=== PATIENT | male | born 1990 | race Caucasian/White ===

== ENCOUNTER 2018-01-11 18:16 | Observation (INO) | payer BC ==
[2018-01-11] MEDS ORDERED: ASPIRIN 81 MG PO STA (18:33)
--- NOTE | 2018-01-11 18:43 | ED ---
Chest Pain HPI - General Chief Complaint: Chest Pain Stated Complaint: Chest Pain Time Seen by Provider: 01/11/18 18:25 Source: patient, RN notes reviewed Mode of arrival: ambulatory Limitations: no limitations - History of Present Illness Initial Comments: This is a 27-year-old male with history of mitral valve prolapse who presents to the emergency department with chief complaint of chest pain. Patient states that 15-20 minutes prior to arrival he developed left lower chest pain that he describes as dull. He states that the pain is constant and has not gone away. He denies any shortness of breath, abdominal pain, nausea or vomiting, dizziness or headache. He states that he has experienced this chest pain in the past. He states that yesterday he had a 20-30 minute episode where he developed chest pain when he took a deep breath in. He states that this has subsided. He reports an extensive family history of cardiac disease. He states his mother in her 30s and had Marfan's syndrome. He states his brother has a defibrillator. He states that he was diagnosed with Marfan syndrome but never had formal genetic testing. He states he is currently trying to get his insurance to cover to genetic testing. He states that he does see cardiology and has an echocardiogram performed every 2 years. - Related Data Home Medications Medication Instructions Recorded Confirmed No Known Home Medications [No 01/11/18 01/11/18 Known Home Medications] Allergies Allergy/AdvReac Type Severity Reaction Status Date / Time No Known Allergies Allergy Verified 01/11/18 18:23 Review of Systems ROS Statement: Those systems with pertinent positive or pertinent negative responses have been documented in the HPI. ROS Other: All systems not noted in ROS Statement are negative. EKG Findings - EKG Comments: EKG Findings:: 18:31:34 : Normal sinus rhythm with sinus arrhythmia. Ventricular rate 66 bpm, SD interval 176, QRS duration 96, QT/QTC 376/394. Past Medical History Past Medical History: Mitral Valve Prolapse (MVP) Additional Past Medical History / Comment(s): Marfans syndrome History of Any Multi-Drug Resistant Organisms: None Reported Past Surgical History: No Surgical Hx Reported Past Psychological History: No Psychological Hx Reported Smoking Status: Never smoker Past Alcohol Use History: Occasional Past Drug Use History: None Reported General Exam - General Exam Comments Initial Comments: General: Awake and alert, well-developed; in no apparent distress. HEENT: Head atraumatic, normocephalic. Pupils are equal, round and reactive to light. Extraocular movements intact. Oropharynx moist without erythema or exudate. Neck: Supple. Normal ROM. Cardiovascular: Regular rate and rhythm. No murmurs, rubs or gallops. Chest symmetrical. Respiratory: Lungs clear to auscultation bilaterally. No wheezes, rales or rhonchi. Normal respiratory effort with no use of accessory muscles. Musculoskeletal: Normal ROM, no tenderness bilateral upper and lower extremities. Ambulating normally. Skin: [place], warm and dry without rashes or lesions. Neurological: Alert and oriented x3. CN II-XII grossly intact. Speech is fluent and answers are appropriate. No focal neuro deficits. Psychiatric: Normal mood and affect. No overt signs of depression or anxiety noted. Limitations: no limitations Course Vital Signs 01/11/18 01/11/18 01/11/18 18:18 19:16 20:05 Temperature 97.3 F L Pulse Rate 72 74 63 Respiratory 18 18 20 Rate Blood Pressure 134/75 116/82 121/56 O2 Sat by Pulse 96 99 99 Oximetry Chest Pain MDM - MDM Chest x-ray impression: No acute cardiopulmonary process. This is a 27-year-old male with history of mitral valve prolapse and Marfan syndrome who presents to the emergency department with chief complaint of chest pain. Patient developed dull left lower chest pain this evening. EKG revealed normal sinus rhythm with sinus arrhythmia. No evidence or ST segment elevation or depression. Chest x-ray revealed no acute abnormalities. CBC, CMP, coags were unremarkable. Troponin was negative. D-dimer is negative. Because of patient's history of mitral valve prolapse and Marfan's syndrome as well as the acute onset of left-sided chest pain, patient will be kept for serial cardiac markers and cardiology consult. Patient is in agreement for admission. Patient 's at bedside states that her mother is a nurse practitioner who works with Dr. Lima. She states that she was informed that patient can be admitted to Dr. Lima if he needed to be. Patient will be admitted to Dr. Lima with consult to cardiology. Disposition Clinical Impression: Chest pain Disposition: ADMITTED IP TO THIS HOSP Condition: Stable Is patient prescribed a controlled substance at d/c from ED?: No Referrals: None,Stated [Primary Care Provider] - 1-2 days Time of Disposition: :41
[2018-01-11 18:49] LABS: Basophils # (A) 0.1 k/uL (0-0.2); Basophils % (A) 1 %; Eosinophils # (A) 0.4 k/uL (0-0.7); Eosinophils % (A) 7 %; HCT 45.4 % (39.0-53.0); HGB 15.6 gm/dL (13.0-17.5); Lymphocytes % (A) 31 %; MCH 29.9 pg (25.0-35.0); MCHC 34.4 g/dL (31.0-37.0); Monocytes # (A) 0.4 k/uL (0-1.0); Monocytes % (A) 6 %; Neutrophils # (A) 3.4 k/uL (1.3-7.7); Neutrophils % (A) 54 %; Platelet Count 206 k/uL (150-450); RBC 5.22 m/uL (4.30-5.90); RDW 12.7 % (11.5-15.5); WBC 6.3 k/uL (3.8-10.6)
[2018-01-11 19:01] LABS: ALT 35 U/L (21-72); AST 20 U/L (17-59); Albumin 4.6 g/dL (3.5-5.0); Alkaline Phosphatase 47 U/L (38-126); Anion Gap 15 mmol/L; Blood Urea Nitrogen 22 mg/dL (9-20); Calcium 9.5 mg/dL (8.4-10.2); Carbon Dioxide 25 mmol/L (22-30); Chloride 103 mmol/L (98-107); Glucose 124 mg/dL (74-99); Magnesium 1.9 mg/dL (1.6-2.3); Potassium 3.8 mmol/L (3.5-5.1); Sodium 143 mmol/L (137-145); Total Bilirubin 0.4 mg/dL (0.2-1.3); Total Protein 6.6 g/dL (6.3-8.2)
[2018-01-11 19:09] LABS: Partial Thromboplastin Time 25.5 sec (22.0-30.0); Prothrombin Time 10.2 sec (9.0-12.0)
[2018-01-11 19:14] LABS: Creatine Kinase 83 U/L (55-170)
--- NOTE | 2018-01-11 19:14 | XR ---
EXAMINATION TYPE: XR chest 2V DATE OF EXAM: 01/11/2018 COMPARISON: NONE HISTORY: Chest pain TECHNIQUE: Frontal and lateral views of the chest are obtained. FINDINGS: There is no focal air space opacity, pleural effusion, or pneumothorax seen. The cardiac silhouette size is upper limits of normal. The osseous structures are intact. IMPRESSION: No acute cardiopulmonary process.
[2018-01-11 19:27] LABS: Creatine Kinase MB 0.4 ng/mL (0.0-2.4); Troponin I <0.012 ng/mL (0.000-0.034)
[2018-01-11] MEDS ORDERED: MORPHINE SULFATE 4 MG/ML SYRINGE IV PRN (20:41)
[2018-01-11] MEDS ORDERED: ACETAMINOPHEN TAB 325 MG TAB PO PRN (20:41)
[2018-01-11] MEDS ORDERED: NALOXONE 0.4 MG/ML 1 ML VIAL IV PRN (20:41)
[2018-01-11] MEDS ORDERED: KETOROLAC 30 MG/ML 1 ML VIAL IVP PRN (20:41)
[2018-01-11] MEDS: SODIUM CHLORIDE 0.9% 1,000 ML IV SCH (21:29)
[2018-01-11 21:35] VITALS: BMI 22.2
[2018-01-12] MEDS: SODIUM CHLORIDE 0.9% 1,000 ML IV SCH (11:41)
[2018-01-12 11:52] VITALS: BP 119/69; PULSE 69; RESP 18; TEMP 98.9
--- NOTE | 2018-01-12 13:22 | HP ---
HISTORY AND PHYSICAL CHIEF COMPLAINT: Left lower anterior wall chest pain. HISTORY OF PRESENT ILLNESS: This is the first admission for this 27-year-old white male. He developed aggravating left lower anterior costal margin pain. It varied somewhat but lasted a day or so and he decided to come to the emergency room. He had no shortness of breath, diaphoresis, nausea, vomiting, pressure in the chest, palpitations, syncope, etc. He had no hemoptysis. This is very likely a chest wall pain. In the emergency room, his enzymes, D-dimer, EKG, etc. were all normal. He was concerned because he did have a spontaneous left pneumothorax in the past, but did not have one this time. Significant also is that his mother and an uncle in the 30s of some unexplained cardiac disease. He has been worked up for possible Marfan syndrome along with his brother. He is very tall and is suggestive of having . He has a faint murmur, apparently. He has had no eye or palatal findings to suggest Marfan's. He has a brother who was also diagnosed with Marfan's. He recently underwent genetic testing and was cleared of that diagnosis. The patient is on atenolol prophylactically. He sees a transporter driver at [facility] (Dr. Lee) who does not believe he has Marfan's either. The pain did not radiate anywhere and it is very likely this is chest wall pain. He has had no history of recent trauma, fever, chills, cough, URI, etc. REVIEW OF SYSTEMS: He has no had no other complaints or problems. He has no renal disease, hematuria, dysuria, diabetes, hypertension, etc. Past medical history, family history, personal and social history are otherwise unremarkable. ALLERGIES: He is not allergic to any medication. MEDICATIONS: He is only on atenolol. He has had no surgery. He does not smoke or drink. PHYSICAL EXAMINATION: VITAL SIGNS: Blood pressure is 123/74 with a pulse of 72, respirations is 16. He is afebrile. GENERAL: In general he appeared to be tall, slender, well developed, well nourished, in no acute distress. SKIN color is normal skin is warm, dry. Lymph nodes not enlarged. HEENT: Head, ears, eyes, nose, mouth, and throat were normal. The palate was not particularly high, arched and eyes are normal. NECK is supple. Neck veins not distended. CHEST is clear. Breath sounds are heard on both sides. A little bit of tenderness in the left costal margin. CARDIAC exam is normal sinus rhythm and no murmurs or extra sounds. ABDOMEN: The abdomen is soft, nontender without visceromegaly or masses. EXTREMITIES: Normal. NEUROLOGICAL is intact. IMPRESSION: 1. Left costal margin chest wall pain. 2. Possible Marfan's syndrome. PLAN: 1. Bed rest. 2. IV fluids. 3. Serial EKGs and enzymes. 4. D-dimer. 5. Cardiology consult. MMODL / IJN: [id number] /
--- NOTE | 2018-01-12 17:35 | CONS ---
CONSULTATION Home Cornejo is a 27-year-old gentleman who sees Dr. Lima in the outpatient setting and also sees a wire saw operator in the [facility] by name Dr. Lee. Apparently, there is a question of Marfan syndrome, but he never had this proven. There is also a question of mitral valve prolapse and he takes atenolol 50 mg daily on a regular basis. Yesterday, he had an episode of what he described as a discomfort in his left lateral chest and came into the hospital with this complaint. The quality of pain is very atypical, almost musculoskeletal in the left lower lateral aspect of the chest. It lasts for a few minutes and it seems to sometimes make him not take a deep breath. However, these symptoms have resolved. He feels well today. He has had a previous echocardiogram and follows with Dr. Lee at the [facility]. He takes atenolol 50 mg daily at home. PAST MEDICAL HISTORY: Question of mitral valve prolapse and a question of Marfan's, both of which are unproven. He has seen an gas golf cart repairer and was told he does not have any ectopia lentis type problem. EXAMINATION: His vital signs are stable with the pressure of 118/70 pulse rate is 64 per minute. HEENT: Unremarkable. Fundus was not examined by me. NECK: Supple. No JVD. I do not hear a carotid bruit. There is no thyromegaly. HEART: Reveals S1, S2 heard normally. There is no rub, murmur, click, or gallop. LUNGS: Clear. ABDOMEN: Soft, nontender. Lower extremities reveal palpable pulses. No edema. Central nervous system is normal. EKG revealed sinus mechanism with borderline voltage criteria for LVH. IMPRESSION: 1. Atypical musculoskeletal chest pain with normal troponins. 2. Question of mitral valve prolapse, but this is not evident on my physical examination, but patient follows with a wire saw operator at [facility]. 3. Question of Marfan syndrome, being evaluated and followed at [facility] and under the care of Dr. Lima. RECOMMENDATIONS: I recommend that this patient can be discharged on his current medical regimen. He is supposed to follow up with his wire saw operator in [facility], Dr. Lee. I am recommending that he has further workup including an outpatient stress test to be performed there. No intervention is necessary at this time. Thank you very much for the consult. LINDSEYL / IJN: [id number] /
--- NOTE | 2018-01-12 22:11 | DS ---
DISCHARGE SUMMARY CHIEF COMPLAINT: Chest wall pain. HISTORY OF PRESENT ILLNESS AND PHYSICAL EXAM: Details of this man's history and physical can be found in the initial workup. LABORATORY STUDIES: While he was in a hospital he had laboratory studies, details which can be found in the laboratory section of his chart. COURSE IN HOSPITAL: After admission he was placed on bedrest, started on intravenous fluids and had serial EKGs and enzymes and they were all normal. EKG was normal and D-dimer was normal. Patient was seen by Cardiology. It is felt that his pain was chest wall in origin and that he go home. He will follow up with his own physician. FINAL DIAGNOSES: 1. Chest wall pain. 2. Unlikely Marfan's syndrome. OPERATIONS: None. CONSULTATION: Cardiology. He is improved. SHILO / MYRAN: [id number] /
[2018-01-13] MEDS ORDERED: ATENOLOL 50 MG TAB PO SCH (09:00)
== END 2018-01-12 12:33 | disposition home or self-care (01) ==
LOC: EC 18:16 → 6SEL 20:18
PROVIDERS: ADMIT Family Medicine; ATTEND Family Medicine
DX: R07.89 Other chest pain (principal); Z79.899 Other long term (current) drug therapy; Z87.09 Personal history of other diseases of the respiratory system
CPT/HCPCS: 36415; 71046; 80053; 82550; 82553; 83735; 84484; 85025; 85379; 85610; 85730; 93005; 99285

== ENCOUNTER → 2020-06-21 | Outpatient (CLI) | payer BC, OTHER | END | disposition home or self-care (01) | LOC: LABWHC1 10:22 | PROVIDERS: ATTEND Family Medicine | DX: Z20.828 Contact with and (suspected) exposure to other viral communicable diseases (principal) | CPT/HCPCS: U0003; C9803 ==

== ENCOUNTER 2022-02-24 21:56 | Emergency (ER) | payer BC ==
[2022-02-24 22:15] VITALS: BP 114/72; PULSE 87; RESP 14; TEMP 98.9
[2022-02-24] MEDS ORDERED: ONDANSETRON 4 MG/2 ML VIAL IVP STA (22:35)
[2022-02-24] MEDS ORDERED: FAMOTIDINE 20 MG/2 ML VIAL IV STA (22:35)
[2022-02-24] MEDS ORDERED: MAG HYDROX/AL HYDROX/SIMETH 30 ML, HYOSCYAMINE ELIXIR 10 ML, LIDOCAINE VISCOUS 2% 10 ML PO STA ×3 (22:36)
--- NOTE | 2022-02-24 22:38 | ED ---
General Adult HPI - General Chief complaint: Recheck/Abnormal Lab/Rx Stated complaint: Overdose, Heart History Time Seen by Provider: 02/24/22 22:17 Source: patient, family Mode of arrival: ambulatory Limitations: no limitations - History of Present Illness Initial comments: This is a 31-year-old male who presents to the emergency department after smoking a large amount of marijuana through a water bong. Patient admittedly smoked more than usual and then went to lay down. Patient's significant other states that he does get slow to respond when he smokes marijuana. However he is slower than usual. He is complaining of some burning sensation in his abdomen and epigastric area. Patient did vomit once prior to arrival. Significant ot her concern because he had a repair of a mitral valve done previously and she was concerned when he started complaining of pain. No headache, no fever or chills, no changes in vision or hearing, no sore throat or difficulty with speech--however, slow to respond after marijuana, no neck pain, no chest pain or shortness of breath,no changes in urination or bowel movements, no numbness or tingling, no extremity pain, no skin rashes or lesions. - Related Data Home Medications Medication Instructions Recorded Confirmed atenoloL [Tenormin] 50 mg PO DAILY 01/11/18 01/12/18 Allergies Allergy/AdvReac Type Severity Reaction Status Date / Time No Known Allergies Allergy Verified 02/24/22 22:09 Review of Systems ROS Statement: Those systems with pertinent positive or pertinent negative responses have been documented in the HPI. ROS Other: All systems not noted in ROS Statement are negative. Past Medical History Past Medical History: Mitral Valve Prolapse (MVP) Additional Past Medical History / Comment(s): Marfans syndrome, partially collapsed lung 12 years ago History of Any Multi-Drug Resistant Organisms: None Reported Past Surgical History: No Surgical Hx Reported, Coronary Bypass/CABG Past Anesthesia/Blood Transfusion Reactions: No Reported Reaction Past Psychological History: No Psychological Hx Reported Smoking Status: Never smoker Past Alcohol Use History: Occasional Past Drug Use History: Marijuana - Past Family History Mother Additional Family Medical History / Comment(s): at 35 from heart condition Brother(s) Family Medical History: AFIB Additional Family Medical History / Comment(s): pacemaker General Exam - General Exam Comments Initial Comments: Patient appears to be somewhat globally slow to respond but is able to give a limited history. He is alert. Cranial nerves II through XII grossly intact. Does not appear to be ill or toxic. Doesn't appear to be intoxicated consistent with heavy marijuana use Limitations: no limitations General appearance: alert, in no apparent distress Head exam: Present: atraumatic, normocephalic, normal inspection Eye exam: Present: normal appearance, PERRL, EOMI. Absent: scleral icterus, conjunctival injection, periorbital swelling ENT exam: Present: normal exam, mucous membranes moist Neck exam: Present: normal inspection, full ROM. Absent: tenderness, meningismus, lymphadenopathy Respiratory exam: Present: normal lung sounds bilaterally. Absent: respiratory distress, wheezes, rales, rhonchi, stridor Cardiovascular Exam: Present: regular rate, normal rhythm, normal heart sounds. Absent: systolic murmur, diastolic murmur, rubs, gallop, clicks GI/Abdominal exam: Present: soft, normal bowel sounds. Absent: distended, tenderness, guarding, rebound, rigid Extremities exam: Present: normal inspection, full ROM, normal capillary refill. Absent: tenderness, pedal edema, joint swelling, calf tenderness Back exam: Present: normal inspection Neurological exam: Present: alert, oriented X3, CN II-XII intact Psychiatric exam: Present: normal affect, normal mood Skin exam: Present: warm, dry, intact, normal color. Absent: rash Course Vital Signs 02/24/22 22:10 Temperature 98.9 F Pulse Rate 87 Respiratory 14 Rate Blood Pressure 114/72 O2 Sat by Pulse 98 Oximetry - Reevaluation(s) Reevaluation #1: 02/25/22 00:46 Medical record is reviewed Symptoms are improved here in the emergency department Patient is informed of results and questions answered Patient in no distress Patient improving. Patient states she is feeling somewhat better. Have yet to collect a urine. While ordered a fluid bolus. Plan for probable discharge. Reevaluation #2: 02/25/22 01:34 Vision improved. Patient able to hold down fluids in the ER. Patient Lucid, alert and oriented 4, cranial nerves II through XII grossly intact Family patient did not want to wait for the urine drug screen. Suspect the patient's symptomology was related to high dose of marijuana. Patient improved. No other significant findings. Presentation unlikely to be consistent with ischemic pain. Patient did have an episode of vomiting with some burning in the abdomen. Likely related to vomiting. This is resolved. Does not appear to be consistent with any infectious process. Repeat exam was benign. Patient was told to return to the ER for any signs or symptoms worsen. Told to return immediately if any other problems arise. All questions answered. Treatment plan discussed. Patient in agreement Every effort has been made to ensure accuracy of this dictation. However, due to the limitations of electronic medical records and dictation devices, errors in charting still occur. Discussed all findings with the patient and family. All questions answered. The case was discussed in detail with ED attending physician. Presentation, findings, treatment plan discussed in detail. Delivery Clerk Dr. Hooper EKG Findings - EKG Comments: EKG Findings:: EKG done at 2227 read by the ED attending physician reveals sinus rhythm with a first-degree AV block. Right axis deviation, normal intervals otherwise, no acute ST or T-wa.ve changes. Normal QRS morphology.No change from the previous study Medical Decision Making - Lab Data Result diagrams: 02/24/22 22:46 02/24/22 22:46 Lab Results 02/24/22 02/24/22 02/24/22 Range/Units 22:46 22:46 22:46 WBC 9.4 (3.8-10.6) k/uL RBC 4.83 (4.30-5.90) m/uL Hgb 15.0 (13.0-17.5) gm/dL Hct 43.7 (39.0-53.0) % MCV 90.4 (80.0-100.0) fL MCH 31.0 (25.0-35.0) pg MCHC 34.2 (31.0-37.0) g/dL RDW 12.9 (11.5-15.5) % Plt Count 219 (150-450) k/uL MPV 7.6 Neutrophils % 69 % Lymphocytes % 22 % Monocytes % 5 % Eosinophils % 2 % Basophils % 0 % Neutrophils # 6.5 (1.3-7.7) k/uL Lymphocytes # 2.1 (1.0-4.8) k/uL Monocytes # 0.5 (0-1.0) k/uL Eosinophils # 0.2 (0-0.7) k/uL Basophils # 0.0 (0-0.2) k/uL Sodium 138 (137-145) mmol/L Potassium 4.4 (3.5-5.1) mmol/L Chloride 103 (98-107) mmol/L Carbon Dioxide 27 (22-30) mmol/L Anion Gap 8 mmol/L BUN 17 (9-20) mg/dL Creatinine 0.83 (0.66-1.25) mg/dL Est GFR (CKD-EPI)AfAm >90 (>60 ml/min/1.73 sqM) Est GFR (CKD-EPI)NonAf >90 (>60 ml/min/1.73 sqM) Glucose 130 H (74-99) mg/dL Calcium 9.3 (8.4-10.2) mg/dL Total Bilirubin 0.4 (0.2-1.3) mg/dL AST 27 (17-59) U/L ALT 22 (4-49) U/L Alkaline Phosphatase 48 (38-126) U/L Troponin I <0.012 (0.000-0.034) ng/mL Total Protein 7.1 (6.3-8.2) g/dL Albumin 4.8 (3.5-5.0) g/dL Lipase 57 (23-300) U/L Urine Color Urine Appearance (Clear) Urine pH (5.0-8.0) Ur Specific [place] (1.001-1.035) Urine Protein (Negative) Urine Glucose (UA) (Negative) Urine Ketones (Negative) Urine Blood (Negative) Urine Nitrite (Negative) Urine Bilirubin (Negative) Urine Urobilinogen (<2.0) mg/dL Ur Leukocyte Esterase (Negative) Salicylates <1.0 mg/dL Acetaminophen <10.0 ug/mL 02/25/22 Range/Units 01:00 WBC (3.8-10.6) k/uL RBC (4.30-5.90) m/uL Hgb (13.0-17.5) gm/dL Hct (39.0-53.0) % MCV (80.0-100.0) fL MCH (25.0-35.0) pg MCHC (31.0-37.0) g/dL RDW (11.5-15.5) % Plt Count (150-450) k/uL MPV Neutrophils % % Lymphocytes % % Monocytes % % Eosinophils % % Basophils % % Neutrophils # (1.3-7.7) k/uL Lymphocytes # (1.0-4.8) k/uL Monocytes # (0-1.0) k/uL Eosinophils # (0-0.7) k/uL Basophils # (0-0.2) k/uL Sodium (137-145) mmol/L Potassium (3.5-5.1) mmol/L Chloride (98-107) mmol/L Carbon Dioxide (22-30) mmol/L Anion Gap mmol/L BUN (9-20) mg/dL Creatinine (0.66-1.25) mg/dL Est GFR (CKD-EPI)AfAm (>60 ml/min/1.73 sqM) Est GFR (CKD-EPI)NonAf (>60 ml/min/1.73 sqM) Glucose (74-99) mg/dL Calcium (8.4-10.2) mg/dL Total Bilirubin (0.2-1.3) mg/dL AST (17-59) U/L ALT (4-49) U/L Alkaline Phosphatase (38-126) U/L Troponin I (0.000-0.034) ng/mL Total Protein (6.3-8.2) g/dL Albumin (3.5-5.0) g/dL Lipase (23-300) U/L Urine Color Yellow Urine Appearance Clear (Clear) Urine pH 7.0 (5.0-8.0) Ur Specific [place] 1.019 (1.001-1.035) Urine Protein Negative (Negative) Urine Glucose (UA) Negative (Negative) Urine Ketones 1+ H (Negative) Urine Blood Negative (Negative) Urine Nitrite Negative (Negative) Urine Bilirubin Negative (Negative) Urine Urobilinogen <2.0 (<2.0) mg/dL Ur Leukocyte Esterase Negative (Negative) Salicylates mg/dL Acetaminophen ug/mL Disposition Clinical Impression: Drug abuse, marijuana, Gastritis Disposition: HOME SELF-CARE Condition: Stable Instructions (If sedation given, give patient instructions): Gastritis (ED), Cannabis Abuse (ED) Additional Instructions: Follow-up with your regular physician as directed. Return to the ER immediately if any symptoms worsen, new symptoms arise, or any other problems develop. Is patient prescribed a controlled substance at d/c from ED?: No Referrals: Trenton,Tanner G, MD [Primary Care Provider] - 1-2 days Time of Disposition: 01:34
[2022-02-24 22:55] LABS: Basophils % (A) 0 %; Eosinophils # (A) 0.2 k/uL (0-0.7); Eosinophils % (A) 2 %; HCT 43.7 % (39.0-53.0); Lymphocytes # (A) 2.1 k/uL (1.0-4.8); Lymphocytes % (A) 22 %; MCHC 34.2 g/dL (31.0-37.0); MCV 90.4 fL (80.0-100.0); Mean Platelet Volume 7.6; Monocytes # (A) 0.5 k/uL (0-1.0); Monocytes % (A) 5 %; Neutrophils # (A) 6.5 k/uL (1.3-7.7); Neutrophils % (A) 69 %; Platelet Count 219 k/uL (150-450); RBC 4.83 m/uL (4.30-5.90); RDW 12.9 % (11.5-15.5); WBC 9.4 k/uL (3.8-10.6)
[2022-02-24 23:05] LABS: ALT 22 U/L (4-49); AST 27 U/L (17-59); Acetaminophen <10.0 ug/mL; African American GFR (CKD) >90 (>60 ml/min/1.73 sqM); Albumin 4.8 g/dL (3.5-5.0); Alkaline Phosphatase 48 U/L (38-126); Anion Gap 8 mmol/L; Blood Urea Nitrogen 17 mg/dL (9-20); Calcium 9.3 mg/dL (8.4-10.2); Carbon Dioxide 27 mmol/L (22-30); Chloride 103 mmol/L (98-107); Glucose 130 mg/dL (74-99); Lipase 57 U/L (23-300); Non-African American GFR(CKD) >90 (>60 ml/min/1.73 sqM); Potassium 4.4 mmol/L (3.5-5.1); Salicylate <1.0 mg/dL; Sodium 138 mmol/L (137-145); Total Bilirubin 0.4 mg/dL (0.2-1.3); Total Protein 7.1 g/dL (6.3-8.2)
--- NOTE | 2022-02-24 23:32 | XR ---
EXAMINATION TYPE: XR abdomen acute w cxr DATE OF EXAM: 02/24/2022 COMPARISON: Chest x-ray 01/11/2018 HISTORY: Pain TECHNIQUE: 4 views FINDINGS: There is no heart failure nor confluent pneumonic infiltrate. No evidence of intestinal obs truction or pneumoperitoneum. Fecal pattern is normal. No evidence of pleural effusion. There are homer rnal wires. IMPRESSION: Nonacute abdomen. No active cardiopulmonary disease.
[2022-02-25] MEDS ORDERED: SODIUM CHLORIDE 0.9% 1,000 ML IV ONE (00:46)
[2022-02-25 01:25] LABS: Appearance,Urine Clear (Clear); Bilirubin,Urine Negative (Negative); Blood,Urine Negative (Negative); Color,Urine Yellow; Glucose,Urine (UA) Negative (Negative); Ketones,Urine 1+ (Negative); Leukocyte Esterase,Urine Negative (Negative); Nitrite,Urine Negative (Negative); Protein,Urine Negative (Negative); Specific Gravity,Urine 1.019 (1.001-1.035); Urobilinogen,Urine <2.0 mg/dL (<2.0)
[2022-02-25 01:39] LABS: Amphetamine Screen,Urine Not Detected (NotDetected); Barbiturate Screen,Urine Not Detected (NotDetected); Benzodiazepines Screen,Urine Not Detected (NotDetected); Cocaine Screen,Urine Not Detected (NotDetected); Methadone Screen, Urine Not Detected (NotDetected); Opiate Screen,Urine Not Detected (NotDetected); Oxycodone Screen, Urine Not Detected (NotDetected); Phencyclidine Screen,Urine Not Detected (NotDetected); Tricyclic Antidepressant,Urine Not Detected (NotDetected); Urn Cannabinoid Scrn Detected (NotDetected)
== END 2022-02-25 02:15 | disposition home or self-care (01) ==
LOC: EC 21:56
DX: F12.10 Cannabis abuse, uncomplicated (principal); K29.70 Gastritis, unspecified, without bleeding
CPT/HCPCS: 36415; 93005; 80053; 83690; 84484; 85025; 81003; 80306; 80143; 80179; 74022; 99284; 96374; 96375; 96361; J2405